=== PATIENT | male | born 1950 | race Two or more races ===

== ENCOUNTER 2018-12-15 05:58 | Day surgery (SDC) | payer OTHER ==
[~2018-12-15 05:58] MED LIST: AMIODARONE HCL200 MG PO; CIALIS10 MG PO; CLONAZEPAM0.25 MG PO; COZAAR100 MG PO; GABAPENTIN400 MG PO; JANUMET 50-5001 EACH; NEXIUM40 M1 PO; RITALIN LA10 MG PO; STOOL SOFTENER50 MG PO; XARELTO20 MG PO; ZANTAC300 MG PO; ZOCOR PO; [UNRECOGNIZED DRUG - OTHER] PO
[2018-12-15] MEDS ORDERED: NEURONTIN300 MG PO (10:42)
[2018-12-15] MEDS ORDERED: ULTRACET PO (10:42)
[2018-12-15] MEDS ORDERED: COLACE100 MG PO (10:43)
== END 2018-12-15 14:05 | disposition home or self-care (01) ==
LOC: CIR.AMB 05:58
DX: K40.20 Bilateral inguinal hernia, without obstruction or gangrene, not specified as recurrent (principal)

== ENCOUNTER 2021-01-13 21:26 | Inpatient (IN) | payer OTHER ==
[~2021-01-13] VITALS: Ht 182.9 cm; Wt 81.6 kg
[~2021-01-13 21:26] MED LIST changes: +COLACE100 MG PO; +NEURONTIN300 MG PO; +ULTRACET PO
[2021-01-13] MEDS ORDERED: SIMVASTATIN20 MG PO (21:34)
[2021-01-13] MEDS ORDERED: CLONAZEPAM0.5 MG PO (21:35)
[2021-01-13] MEDS ORDERED: FLECAINIDE ACET50 MG PO (21:35)
[2021-01-13] MEDS ORDERED: DULOXETINE HCL30 MG PO (21:35)
[2021-01-13] MEDS ORDERED: METHYLPHENIDATE20 MG PO (21:35)
[2021-01-13] MEDS ORDERED: LOSARTAN POTAS100 MG PO (21:35)
[2021-01-13] MEDS ORDERED: MIRTAZAPINE15 MG PO (21:35)
[2021-01-13] MEDS ORDERED: MONTELUKAST SOD10 MG PO (21:36)
[2021-01-13] MEDS ORDERED: METFORMIN HCL500 M1 PO (21:36)
== END 2021-01-15 18:28 | disposition home or self-care (01) | DRG 69 ==
LOC: ER 21:26 → SEC-K 01-14 09:21 → MEDI 01-14 09:21
PROVIDERS: ADMIT Internal Medicine; ATTEND Internal Medicine
PROC: 4A12X4Z Monitoring of Cardiac Electrical Activity, External Approach (ICD-10-PCS; principal; 2021-01-14)
DX: G45.8 Other transient cerebral ischemic attacks and related syndromes (principal); I48.20 Chronic atrial fibrillation, unspecified; I10 Essential (primary) hypertension; I25.10 Atherosclerotic heart disease of native coronary artery without angina pectoris; Z20.822 Contact with and (suspected) exposure to COVID-19; E11.65 Type 2 diabetes mellitus with hyperglycemia; Z85.46 Personal history of malignant neoplasm of prostate; Z95.0 Presence of cardiac pacemaker; Z79.01 Long term (current) use of anticoagulants